=== PATIENT | male | born 1995 | race Two or more races ===

== ENCOUNTER 2021-03-02 07:10 | Emergency (ER) | payer SELFPAY ==
[~2021-03-02] VITALS: Ht 170.2 cm; Wt 75.7 kg
--- NOTE | 2021-03-02 08:07 | ED.ADGEN ---
Past Medical History Past Surgical History: No Surgical History Smoking Status: Never Smoker Alcohol Use: Occasionally General Adult EDM: Chief Complaint: SHORTNESS OF BREATH HPI: HPI: Patient is a 25-year-old male who arrives ambulatory to the emergency department complaining of shortness of air with a productive cough since Saturday of this week. Patient states he has had fevers as well. Patient also states that he has been exposed to persons with coronavirus and recently learned that he recently tested positive for the virus on Saturday last week. He has not had the vaccine. Despite this he denies any chest pain. Additionally denies any abdominal pain and does not appear to be in any respiratory distress right now. He is awake, alert and nontoxic-appearing. Review of Systems: Review of Systems: Constitutional: Reports fever. [] Eyes: Denies change in visual acuity. [] HENT: Denies nasal congestion or sore throat. [] Respiratory: Reports productive cough and shortness of breath. [] Cardiovascular: Denies chest pain or edema. [] GI: Denies abdominal pain, nausea, vomiting, bloody stools or diarrhea. [] : Denies dysuria. [] Musculoskeletal: Denies back pain or joint pain. [] Integument: Denies rash. [] Neurologic: Denies headache, focal weakness or sensory changes. [] Endocrine: Denies polyuria or polydipsia. [] Lymphatic: Denies swollen glands. [] Psychiatric: Denies depression or anxiety. [] Family History: Family History: Noncontributory Current Medications: Current Medications Medications (Trade) Dose Ordered Sig/[facility] Start Time Stop Time Status Last Admin Dose Admin Acetaminophen (Tylenol) 1,000 mg 1X ONCE 03/02/21 08:15 03/02/21 08:16 DC 03/02/21 08:21 1,000 MG Allergies: Allergies: Allergies Coded Allergies Type Severity Reaction Last Updated Verified No Known Drug Allergies 03/02/21 No Physical Exam: PE: Constitutional: Well developed, well nourished, no acute distress, non-toxic appearance. [] HENT: Normocephalic, atraumatic, bilateral external ears normal, oropharynx moist, no oral exudates, nose normal. [] Eyes: PERRLA, EOMI, conjunctiva normal, no discharge. [] Neck: Normal range of motion, no tenderness, supple, no stridor. [] Cardiovascular:Heart rate regular rhythm, no murmur [] Lungs & Thorax: Bilateral breath sounds clear to auscultation [] Abdomen: Bowel sounds normal, soft, no tenderness, no masses, no pulsatile masses. [] Skin: Warm, dry, no erythema, no rash. [] Back: No tenderness, no CVA tenderness. [] Extremities: No tenderness, no cyanosis, no clubbing, ROM intact, no edema. [] Neurologic: Alert and oriented X 3, normal motor function, normal sensory function, no focal deficits noted. [] Psychologic: Affect normal, judgement normal, mood normal. [] Current Patient Data: Vital Signs: Vital Signs Date Time Temp Pulse Resp B/P (MAP) Pulse Ox O2 Delivery O2 Flow Rate FiO2 03/02/21 08:41 102.1 96 24 130/63 (85) 96 Room Air 102.1 EKG: EKG: [] Heart Score: C/O Chest Pain: No Risk Factors: Risk Factors: DM, Current or recent (<one month) smoker, HTN, HLP, family history of CAD, obesity. Risk Scores: Score 0 - 3: 2.5% MACE over next 6 weeks - Discharge Home Score 4 - 6: 20.3% MACE over next 6 weeks - Admit for Clinical Observation Score 7 - 10: 72.7% MACE over next 6 weeks - Early Invasive Strategies Radiology/Procedures: Radiology/Procedures: [] Impression: [facility] [address] [place] [address] IMAGING REPORT Signed PATIENT: ISIS GRAHAM ACCOUNT: [id number] : 1995 LOCATION: ER AGE: 25 SEX: M EXAM STATUS: REG ER ORD. PHYSICIAN: SOPHIA BRUCE DO REASON: cough/fever PROCEDURE: CHEST AP ONLY XR CHEST 1V CLINICAL INDICATIONS: Cough and fever COMPARISON: None available. Findings: There is a left lower lobe consolidative infiltrate. No infiltrate is seen on the right side. No pleural effusion or pneumothorax is seen. The heart size, pulmonary vasculature, mediastinum and both dileep are unremarkable. IMPRESSION: Left lower lobe consolidative infiltrate. Electronically signed by: Rufino Franz MD (03/02/2021 8:20 AM) [id number] DICTATED and SIGNED BY: RUFINO FRANZ MD DATE: 03/02/21 [id number] Course & Med Decision Making: Course & Med Decision Making Pertinent Labs and Imaging studies reviewed. (See chart for details) The patient remains awake, alert and in no acute distress. Patient does have what appears to be consolidation of the left lower lobe. This is consistent with his recent history of Covid pneumonia. Patient already is taking steroids as well as antibiotics and I have elected to place him on inhaler and asked that he quarantine from the date of his symptoms onset. Should he have any new chest pain or shortness of air I advised that he return. The patient understands and states he will do so. Have also advised that he take Tylenol and Motrin with regularity for both fever as well as pain control. The patient understands and has agreed to do so. He is nontoxic-appearing and stable for discharge. Carmen Disclaimer: Carmen Disclaimer: This electronic medical record was generated, in whole or in part, using a voice recognition dictation system. Departure Departure Impression: Primary Impression: COVID-19 Disposition: 01 HOME / SELF CARE / HOMELESS Condition: STABLE Referrals: NO PCP (PCP) Patient Instructions: Pneumonia, Adult Additional Instructions: Patient is being provided instructions with respect to coronavirus. Scripts Albuterol Sulfate (PROAIR HFA INHALER) 8.5 Gm Hfa.aer.ad 2 PUFF IH PRN Q4-6HRS PRN for wheezing for 21 Days, #1 INHALER 0 Refills Prov: SOPHIA BRUCE DO 03/02/21 SOPHIA BRUCE DO Mar 02, 2021 08:07
[2021-03-02] MEDS ORDERED: ACETAMINOPHEN 500 MG TABLET PO ONE (08:15)
--- NOTE | 2021-03-02 08:23 | RAD ---
XR CHEST 1V CLINICAL INDICATIONS: Cough and fever COMPARISON: None available. Findings: There is a left lower lobe consolidative infiltrate. No infiltrate is seen on the right sophy e. No pleural effusion or pneumothorax is seen. The heart size, pulmonary vasculature, mediastinum an d both dileep are unremarkable. IMPRESSION: Left lower lobe consolidative infiltrate. Electronically signed by: Paramjit Franz MD (03/02/2021 8:20 AM) [id number]
[2021-03-02] MEDS ORDERED: ALBU2.5V8 IH (08:34)
[2021-03-02 08:41] VITALS: BP 130/63
== END 2021-03-02 08:40 | disposition home or self-care (01) ==
LOC: ER 07:10
DX: U07.1 COVID-19 (principal)
CPT/HCPCS: 71045; 99283